=== PATIENT | female | born 1975 | race American Indian/Alaskan Native ===

== ENCOUNTER 2017-10-28 22:45 | Emergency (ER) | payer MEDICAID ==
[2017-10-28 23:16] VITALS: BP 103/68
--- NOTE | 2017-10-29 01:13 | Emergency Department Report ---
ED General Adult HPI - General Chief complaint: Headache Stated complaint: HEADACHE Time Seen by Provider: 10/29/17 00:37 Source: patient Mode of arrival: Ambulatory Limitations: No Limitations - History of Present Illness Initial comments: For the past 2 weeks, patient has been having intermittent frontal headaches. This is accompanied with sinus congestion and ear pressure. Patient has history of recurrent sinus issues. Remote history of sinus surgery. She saw a physician 2 weeks ago and was given Augmentin and loratadine. This has not helped her symptoms. So, she came to the ER for evaluation. No pain with eating. Afebrile. - Related Data Allergies Allergy/AdvReac Type Severity Reaction Status Date / Time acetaminophen Allergy Hives Verified 10/28/17 23:07 [From Excedrin PM] diphenhydramine Allergy Hives Verified 10/28/17 23:07 [From Excedrin PM] fluconazole [From Diflucan] Allergy Unknown Verified 10/28/17 23:07 metronidazole [From Flagyl] Allergy Nausea Verified 10/28/17 23:07 promethazine [From Phenergan] Allergy Unknown Verified 10/28/17 23:07 red dye Allergy Nausea Verified 10/28/17 23:07 ED Review of Systems ROS: Stated complaint: HEADACHE Other details as noted in HPI Comment: All other systems reviewed and negative ENT: ear pain, congestion Neurological: headache ED Past Medical Hx - Past Medical History Hx Diabetes: Yes (borderline) Additional medical history: hypothyrodism - Surgical History Past Surgical History?: Yes Hx Cholecystectomy: Yes Additional Surgical History: x2, sinus sx - Social History Smoking Status: Never Smoker Substance Use Type: None ED Physical Exam - General Limitations: No Limitations General appearance: alert, in no apparent distress - Head Head exam: Present: atraumatic, normocephalic - Eye Eye exam: Present: normal appearance - ENT ENT exam: Present: mucous membranes moist, TM's normal bilaterally, other (mild left frontal/maxillary sinus tenderness) - Neck Neck exam: Present: normal inspection - Respiratory Respiratory exam: Present: normal lung sounds bilaterally. Absent: respiratory distress - Cardiovascular Cardiovascular Exam: Present: regular rate, normal rhythm. Absent: systolic murmur, diastolic murmur, rubs, gallop - GI/Abdominal GI/Abdominal exam: Present: soft, normal bowel sounds. Absent: tenderness - Extremities Exam Extremities exam: Present: normal inspection - Back Exam Back exam: Present: normal inspection - Neurological Exam Neurological exam: Present: alert, oriented X3 - Psychiatric Psychiatric exam: Present: normal affect, normal mood - Skin Skin exam: Present: warm, dry, intact, normal color. Absent: rash ED Course Vital Signs 10/28/17 23:07 Temperature 98.5 F Pulse Rate 95 H Respiratory 18 Rate Blood Pressure 103/68 O2 Sat by Pulse 99 Oximetry ED Medical Decision Making - Medical Decision Making 42-year-old female with past medical history sinus congestion presents with a sinus headache. Vital signs are stable. Patient is well-appearing. Afebrile. Likely patient is suffering from sinus congestion. I will start the patient on Flonase/Claritin-D/neti-pot. Patient will follow up with her ENT physician for further management of this issue. Clear for discharge. - Differential Diagnosis sinus congestion, sinusitis, tension headache, periapical abscess Critical care attestation.: If time is entered above; I have spent that time in minutes in the direct care of this critically ill patient, excluding procedure time. ED Disposition Clinical Impression: Sinus headache Disposition: DC-01 TO HOME OR SELFCARE Is pt being admited?: No Does the pt Need Aspirin: No Condition: Stable Additional Instructions: Please start using Flonase, Claritin-D, and a neti-pot. Use these medications daily to clear up your sinuses. They can be purchased [id number]. He can take 800 mg Motrin and/or 975 mg Tylenol every 6 hours as needed for pain relief. Follow Up with her ENT physician for further management of your sinus issues.
== END 2017-10-29 01:31 | disposition home or self-care (01) ==
LOC: ED 22:45
DX: R51 Headache (principal); E03.9 Hypothyroidism, unspecified
CPT/HCPCS: 99282

== ENCOUNTER 2019-08-10 20:45 | Observation (INO) | payer MEDICAID, OTHER ==
[2019-08-10 21:31] LABS: Basophils % (Auto) 0.4 % (0.0-1.8); Eosinophils % (Auto) 0.2 % (0.0-4.3); Hematocrit 41.2 % (30.3-42.9); Hemoglobin 13.8 gm/dl (10.1-14.3); Lymphocytes # (Auto) 1.6 K/mm3 (1.2-5.4); Mean Corpuscular HGB Conc 34 % (30-34); Mean Corpuscular Volume 87 fl (79-97); Monocytes # (Auto) 0.6 K/mm3 (0.0-0.8); Monocytes % (Auto) 5.8 % (0.0-7.3); Platelet Count 269 K/mm3 (140-440); Red Blood Count 4.73 M/mm3 (3.65-5.03); Red Cell Distribution Width 14.5 % (13.2-15.2)
[2019-08-10 22:00] LABS: Alanine Aminotransferase 82 units/L (7-56); Albumin 4.3 g/dL (3.9-5); BUN/Creatinine Ratio 10; Blood Urea Nitrogen 7 mg/dL (7-17); Hemolysis Index 2
[2019-08-10 23:18] LABS: Bilirubin,Urine NEG (Negative); Blood,Urine NEG (Negative); Color,Urine Yellow (Yellow); Mucus,Urine 2+ /HPF
[2019-08-11] MEDS ORDERED: HYOSCYAMINE SUBL 0.125 MG TAB SL ONE (00:01)
[2019-08-11] MEDS ORDERED: SODIUM CHLORIDE 0.9% 1000 ML 1,000 ML IV ONE (00:01)
[2019-08-11] MEDS ORDERED: ONDANSETRON 4 MG/2 ML INJ IV ONE ×2 (00:01→04:48)
--- NOTE | 2019-08-11 00:43 | Emergency Department Report ---
ED General Adult HPI - General Chief complaint: Abdominal Pain Stated complaint: ABD PAIN Time Seen by Provider: 08/10/19 23:29 Source: patient Mode of arrival: Ambulatory Limitations: No Limitations - History of Present Illness Initial comments: Patient is a 44-year-old female presents emergency room with complaints of epigastric abdominal pain that began yesterday. She states that yesterday she ate Cheema[employer] and began to feel the pain a couple of hours later. She states that she has associated nausea and had 2 episodes of vomiting. She states that the pain radiates to her back. she states that she feels like she needs to have a BM but did not. She denies any diarrhea, fever, urinary symptoms, hematochezia, hematemesis, melena. She denies having this in the past. She has a past medical history of hypothyroidism and cholecystectomy and hysterectomy. - Related Data Allergies Allergy/AdvReac Type Severity Reaction Status Date / Time acetaminophen Allergy Hives Verified 10/28/17 23:07 [From Excedrin PM] diphenhydramine Allergy Hives Verified 10/28/17 23:07 [From Excedrin PM] fluconazole [From Diflucan] Allergy Unknown Verified 10/28/17 23:07 metronidazole [From Flagyl] Allergy Nausea Verified 10/28/17 23:07 promethazine [From Phenergan] Allergy Unknown Verified 10/28/17 23:07 red dye Allergy Nausea Verified 10/28/17 23:07 ED Review of Systems ROS: Stated complaint: ABD PAIN Other details as noted in HPI Comment: All other systems reviewed and negative ED Past Medical Hx - Past Medical History Hx Diabetes: Yes (borderline) Additional medical history: hypothyrodism - Surgical History Hx Cholecystectomy: Yes Additional Surgical History: x2, sinus sx. Partial Hyst - Social History Smoking Status: Never Smoker Substance Use Type: None ED Physical Exam - General Limitations: No Limitations General appearance: alert, in no apparent distress - Head Head exam: Present: atraumatic, normocephalic - Eye Eye exam: Present: normal appearance - ENT ENT exam: Present: mucous membranes moist - Respiratory Respiratory exam: Present: normal lung sounds bilaterally. Absent: respiratory distress, wheezes, rales, rhonchi, stridor, chest wall tenderness, accessory muscle use, decreased breath sounds, prolonged expiratory - Cardiovascular Cardiovascular Exam: Present: regular rate, normal rhythm, normal heart sounds. Absent: systolic murmur, diastolic murmur, rubs, gallop - GI/Abdominal GI/Abdominal exam: Present: soft, tenderness (epigastric), normal bowel sounds. Absent: distended, guarding, rebound, rigid - Neurological Exam Neurological exam: Present: alert, oriented X3 - Psychiatric Psychiatric exam: Present: normal affect, normal mood - Skin Skin exam: Present: warm, dry, intact ED Course Vital Signs 08/10/19 08/11/19 20:51 05:35 Temperature 98.1 F 98.6 F Pulse Rate 90 101 H Respiratory 18 18 Rate Blood Pressure 122/72 Blood Pressure 115/75 [Right] O2 Sat by Pulse 100 97 Oximetry - Consultations Consultation #1: 08/11/19 04:[address] Ruelas, GI regarding pt and results, recommended ordering MRCP admit to hospitalist and will see patient in the AM 08/11/19 04:[address] Harry, hospitalist will accept and resume care of patient will admit to hospital ED Medical Decision Making - Lab Data Result diagrams: 08/10/19 21:14 08/10/19 21:14 Lab Results 08/10/19 08/10/19 08/10/19 Range/Units 21:14 21:14 22:51 WBC 10.1 (4.5-11.0) K/mm3 RBC 4.73 (3.65-5.03) M/mm3 Hgb 13.8 (10.1-14.3) gm/dl Hct 41.2 (30.3-42.9) % MCV 87 (79-97) fl MCH 29 (28-32) pg MCHC 34 (30-34) % RDW 14.5 (13.2-15.2) % Plt Count 269 (140-440) K/mm3 Lymph % (Auto) 16.0 (13.4-35.0) % [place]cl[place] % (Auto) 5.8 (0.0-7.3) % Eos % (Auto) 0.2 (0.0-4.3) % Baso % (Auto) 0.4 (0.0-1.8) % Lymph # 1.6 (1.2-5.4) K/mm3 Mcclain # 0.6 (0.0-0.8) K/mm3 Eos # 0.0 (0.0-0.4) K/mm3 Baso # 0.0 (0.0-0.1) K/mm3 Seg Neutrophils % 77.6 H (40.0-70.0) % Seg Neutrophils # 7.9 H (1.8-7.7) K/mm3 Sodium 139 (137-145) mmol/L Potassium 3.9 (3.6-5.0) mmol/L Chloride 99.8 (98-107) mmol/L Carbon Dioxide 22 (22-30) mmol/L Anion Gap 21 mmol/L BUN 7 (7-17) mg/dL Creatinine 0.7 (0.7-1.2) mg/dL Estimated GFR > 60 ml/min BUN/Creatinine Ratio 10 % Glucose 153 H (65-100) mg/dL Calcium 10.0 (8.4-10.2) mg/dL Total Bilirubin 0.50 (0.1-1.2) mg/dL AST 85 H (5-40) units/L ALT 82 H (7-56) units/L Alkaline Phosphatase 107 (35-129) units/L Total Protein 8.4 H (6.3-8.2) g/dL Albumin 4.3 (3.9-5) g/dL Albumin/Globulin Ratio 1.0 % Urine Color Yellow (Yellow) Urine Turbidity Clear (Clear) Urine pH 6.0 (5.0-7.0) Ur Specific [place] 1.021 (1.003-1.030) Urine Protein 30 mg/dl (Negative) mg/dL Urine Glucose (UA) 50 (Negative) mg/dL Urine Ketones Neg (Negative) mg/dL Urine Blood Neg (Negative) Urine Nitrite Neg (Negative) Urine Bilirubin Neg (Negative) Urine Urobilinogen 4.0 (<2.0) mg/dL Ur Leukocyte Esterase Neg (Negative) Urine WBC (Auto) 1.0 (0.0-6.0) /HPF Urine RBC (Auto) 2.0 (0.0-6.0) /HPF U Epithel Cells (Auto) 7.0 (0-13.0) /HPF Urine Mucus 2+ /HPF - Radiology Data Radiology results: report reviewed CT abdomen pelvis w con INDICATION / CLINICAL INFORMATION: Pt complains of epigastric pain with N/V, elevated LFT's. TECHNIQUE: Axial CT imaging of abdomen and pelvis was obtained with IV contrast. Coronal and sagittal reformatted imaging obtained and reviewed. All CT scans at this location are performed using CT dose reduction for ALARA by means of automated exposure control. COMPARISON: None available. FINDINGS: CT abdomen with contrast demonstrates prominent intrahepatic biliary dilatation. Patient has had prior cholecystectomy. The degree of intrahepatic biliary dilatation is in excess of what would normally be expected in a postcholecystectomy patient. Common bile duct is also dilated, measuring approximately 8 mm in diameter. Within the pancreatic head, there is a 13 mm hypodense masslike area which may be causing the obstruction. There is mild pancreatic duct dilatation as well. Spleen, kidneys, and adrenal glands are all grossly unremarkable. There is small epigastric midline abdominal wall hernia containing only fat. CT pelvis with contrast does not demonstrate any focal inflammatory change. There is trace amount of free fluid in the posterior cul-de-sac. Small cyst is present in the left ovary, most likely postovulatory in etiology. Additionally, there is a round hyperdense mass in the right lower quadrant, measuring 3.0 cm. It is abutting the right ovary cecal tip but is unclear if it is ovarian in etiology. A normal appendix is seen separate from this mass. The remainder of the GI tract is unremarkable. Visualized lung bases are clear. No significant osseous abnormality. IMPRESSION: 1. Biliary dilatation including intrahepatic and extrahepatic. Although biliary dilatation can be seen in postcholecystectomy patients, the amount of dilatation appears excessive. Additionally there is suggestion of a 13 mm possible mass in the pancreatic head which could account for the abnormal biliary dilatation. Further evaluation with ERCP or MRCP is suggested for further evaluation. 2. 3 cm hyperdense mass in the right lower quadrant, adjacent to the right ovary and cecum. This may be ovarian in etiology but is abnormal and needs further evaluation with pelvic ultrasound in the very near future. 3. Small epigastric midline abdominal wall hernia containing only fat. Signer Name: Cherelle Michelle MD Signed: 08/11/2019 4:04 AM Workstation Name: [id number] Transcribed By: Dictated By: Cherelle Michelle MD Electronically Authenticated By: Cherelle Michelle MD Signed Date/Time: 08/11/19 0404 DD/ 0355 TD/TT: - Medical Decision Making Patient is a 44-year-old female presents emergency room with complaints of epigastric abdominal pain that began yesterday. She states that yesterday she ate [employer] and began to feel the pain a couple of hours later. She states that she has associated nausea and had 2 episodes of vomiting. She states that the pain radiates to her back. she states that she feels like she needs to have a BM but did not. She denies any diarrhea, fever, urinary symptoms, hematochezia, hematemesis, melena. She denies having this in the past. She has a past medical history of hypothyroidism and cholecystectomy and hysterectomy. Vitals are normal. On exam epigastric abdominal tenderness to palpation. Labs with elevated glucose at 153, mild elevation in ALT and AST. UA without evidence of UTI. CT abd pelvis: 1. Biliary dilatation including intrahepatic and extrahepatic. Although biliary dilatation can be seen in postcholecystectomy patients, the amount of dilatation appears excessive. Additionally there is suggestion of a 13 mm possible mass in the pancreatic head which could account for the abnormal biliary dilatation. Further evaluation with ERCP or MRCP is suggested for further evaluation. 2. 3 cm hyperdense mass in the right lower quadrant, adjacent to the right ovary and cecum. This may be ovarian in etiology but is abnormal and needs further evaluation with pelvic ultrasound in the very near future. 3. Small epigastric midline abdominal wall hernia containing only fat. spoke to Dr. Ruelas, GI regarding pt and results, recommended ordering MRCP admit to hospitalist and will see patient in the AM. spoke with Dr. Harry, hospitalist will accept and resume care of patient will admit to hospital. ordered MRCP and pelvic US, pt admitted to the hospital. - Differential Diagnosis PUD, GERD, pancreatitis, choledocholithiasis, bowel obstruction Critical care attestation.: If time is entered above; I have spent that time in minutes in the direct care of this critically ill patient, excluding procedure time. ED Disposition Clinical Impression: Epigastric abdominal pain, Dilation of biliary tract, Pancreatic mass, Ovarian mass, right Nausea and vomiting Qualifiers: Vomiting type: unspecified Vomiting Intractability: non-intractable Qualified Code(s): R11.2 - Nausea with vomiting, unspecified Disposition: OP ADMIT IP TO THIS HOSP Is pt being admited?: Yes Does the pt Need Aspirin: No Condition: Fair Time of Disposition: 04:43
--- NOTE | 2019-08-11 04:08 | Cat Scan Report ---
CT abdomen pelvis w con INDICATION / CLINICAL INFORMATION: Pt complains of epigastric pain with N/V, elevated LFT's. TECHNIQUE: Axial CT imaging of abdomen and pelvis was obtained with IV contrast. Coronal and sagittal reformatte d imaging obtained and reviewed. All CT scans at this location are performed using CT dose reduction for ALARA by means of automated exposure control. COMPARISON: None available. FINDINGS: CT abdomen with contrast demonstrates prominent intrahepatic biliary dilatation. Patient has had prio r cholecystectomy. The degree of intrahepatic biliary dilatation is in excess of what would normally be expected in a postcholecystectomy patient. Common bile duct is also dilated, measuring approximate ly 8 mm in diameter. Within the pancreatic head, there is a 13 mm hypodense masslike area which may b e causing the obstruction. There is mild pancreatic duct dilatation as well. Spleen, kidneys, and adrenal glands are all grossly unremarkable. There is small epigastric midline a bdominal wall hernia containing only fat. CT pelvis with contrast does not demonstrate any focal inflammatory change. There is trace amount of free fluid in the posterior cul-de-sac. Small cyst is present in the left ovary, most likely postovul atory in etiology. Additionally, there is a round hyperdense mass in the right lower quadrant, measur ing 3.0 cm. It is abutting the right ovary cecal tip but is unclear if it is ovarian in etiology. A n ormal appendix is seen separate from this mass. The remainder of the GI tract is unremarkable. Visualized lung bases are clear. No significant osseous abnormality. IMPRESSION: 1. Biliary dilatation including intrahepatic and extrahepatic. Although biliary dilatation can be see n in postcholecystectomy patients, the amount of dilatation appears excessive. Additionally there is suggestion of a 13 mm possible mass in the pancreatic head which could account for the abnormal bilia ry dilatation. Further evaluation with ERCP or MRCP is suggested for further evaluation. 2. 3 cm hyperdense mass in the right lower quadrant, adjacent to the right ovary and cecum. This may be ovarian in etiology but is abnormal and needs further evaluation with pelvic ultrasound in the ce y near future. 3. Small epigastric midline abdominal wall hernia containing only fat. Signer Name: Cherelle Michelle MD Signed: 08/11/2019 4:04 AM Workstation Name: [id number]
--- NOTE | 2019-08-11 07:42 | Ultrasound Report ---
ULTRASOUND PELVIS INDICATION / CLINICAL INFORMATION: possible right ovarian mass on CT. TECHNIQUE: Transabdominal. Transvaginal Duplex Color Doppler used: Yes. COMPARISON: CT scan 08/11/2019. FINDINGS: marketing technologist indicates the patient stated she had a hysterectomy in [address]. [address] sc an, there is a 7 cm oval mass in the expected location of the uterus. marketing technologist does no t image a uterus but probably was under the impression that it was absent. RIGHT ADNEXA: There is a tubular structure in the right adnexa consistent with small hydrosalpinx. A normal appearing right ovary is present measuring 2.3 x 1.1 cm. The 3 cm round solid hyperdense mass on CT scan adjacent to the right ovary is not identified sonographically. LEFT ADNEXA: Left ovary is well-visualized. There is a 1 cm complicated cyst in the left ovary consis tent with CT findings of a postovulatory appearing cyst. Normal color Doppler blood flow. FREE FLUID: Trace free fluid is present in the cul-de-sac. ADDITIONAL FINDINGS: None. IMPRESSION: 1. The 3 cm solid hyperdense mass adjacent to the right ovary on CT scan is not identified sonographi shavon. Nonemergent CLIMATOLOGY TEACHER consultation is recommended for further evaluation. 2. Patient states hysterectomy was performed in 2004. However, what appears to be a normal sized uter us is present on CT scan. CLIMATOLOGY TEACHER consultation can further evaluate this discrepancy as well. Signer Name: Cherelle Michelle MD Signed: 08/11/2019 7:38 AM Workstation Name: [id number]
--- NOTE | 2019-08-11 07:42 | Ultrasound Report ---
ULTRASOUND PELVIS INDICATION / CLINICAL INFORMATION: possible right ovarian mass on CT. TECHNIQUE: Transabdominal. Transvaginal Duplex Color Doppler used: Yes. COMPARISON: CT scan 08/11/2019. FINDINGS: arrt technologist indicates the patient stated she had a hysterectomy in [address] sc an, there is a 7 cm oval mass in the expected location of the uterus. arrt technologist does no t image a uterus but probably was under the impression that it was absent. RIGHT ADNEXA: There is a tubular structure in the right adnexa consistent with small hydrosalpinx. A normal appearing right ovary is present measuring 2.3 x 1.1 cm. The 3 cm round solid hyperdense mass on CT scan adjacent to the right ovary is not identified sonographically. LEFT ADNEXA: Left ovary is well-visualized. There is a 1 cm complicated cyst in the left ovary consis tent with CT findings of a postovulatory appearing cyst. Normal color Doppler blood flow. FREE FLUID: Trace free fluid is present in the cul-de-sac. ADDITIONAL FINDINGS: None. IMPRESSION: 1. The 3 cm solid hyperdense mass adjacent to the right ovary on CT scan is not identified sonographi shavon. Nonemergent DRY CLEANING CHECKER consultation is recommended for further evaluation. 2. Patient states hysterectomy was performed in 2004. However, what appears to be a normal sized uter us is present on CT scan. DRY CLEANING CHECKER consultation can further evaluate this discrepancy as well. Signer Name: Cherelle Michelle MD Signed: 08/11/2019 7:38 AM Workstation Name: [id number]
--- NOTE | 2019-08-11 08:08 | History and Physical Report ---
History of Present Illness Date of examination: 08/11/19 Date of admission: 08/11/19 06:15 History of present illness: Patient is a 44-year-old female presents emergency room with complaints of epigastric abdominal pain that began yesterday. She states that yesterday she ate [employer] and began to feel the pain a couple of hours later. She states that she has associated nausea and had 2 episodes of vomiting. She states that the pain radiates to her back. she states that she feels like she needs to have a BM but did not. She denies any diarrhea, fever, urinary symptoms, hematochezia, hematemesis, melena. She denies having this in the past. She has a past medical history of hypothyroidism and cholecystectomy and hysterectomy. Vitals are normal. On exam epigastric abdominal tenderness to palpation. Labs with elevated glucose at 153, mild elevation in ALT and AST. UA without evidence of UTI. CT abd pelvis: 1. Biliary dilatation including intrahepatic and extrahepatic. Although biliary dilatation can be seen in postcholecystectomy patients, the amount of dilatation appears excessive. Additionally there is suggestion of a 13 mm possible mass in the pancreatic head which could account for the abnormal biliary dilatation. Further evaluation with ERCP or MRCP is suggested for further evaluation. 2. 3 cm hyperdense mass in the right lower quadrant, adjacent to the right ovary and cecum. This may be ovarian in etiology but is abnormal and needs further evaluation with pelvic ultrasound in the very near future. 3. Small epigastric midline abdominal wall hernia containing only fat. consultrd Dr. Ruelas, GI regarding pt and results, recommended ordering MRCP admit to for further Mx. Medications and Allergies Allergies Allergy/AdvReac Type Severity Reaction Status Date / Time acetaminophen Allergy Hives Verified 10/28/17 23:07 [From Excedrin PM] diphenhydramine Allergy Hives Verified 10/28/17 23:07 [From Excedrin PM] fluconazole [From Diflucan] Allergy Unknown Verified 10/28/17 23:07 metronidazole [From Flagyl] Allergy Nausea Verified 10/28/17 23:07 promethazine [From Phenergan] Allergy Unknown Verified 10/28/17 23:07 red dye Allergy Nausea Verified 10/28/17 23:07 Exam - Constitutional Vitals: Temp Pulse Resp BP Pulse Ox 98.6 F 101 H 18 115/75 97 08/11/19 05:35 08/11/19 05:35 08/11/19 05:35 08/11/19 05:35 08/11/19 05:35 Results - Labs CBC & Chem 7: 08/10/19 21:14 08/10/19 21:14 Labs: Abnormal lab results 08/10/19 08/10/19 Range/Units 21:14 21:14 Seg Neutrophils % 77.6 H (40.0-70.0) % Seg Neutrophils # 7.9 H (1.8-7.7) K/mm3 Glucose 153 H (65-100) mg/dL AST 85 H (5-40) units/L ALT 82 H (7-56) units/L Total Protein 8.4 H (6.3-8.2) g/dL
[2019-08-11] MEDS ORDERED: MORPHINE 2 MG/1 ML INJ IV PRN (08:30)
[2019-08-11] MEDS ORDERED: hydrALAZINE 20 MG/1 ML INJ IV PRN (08:30)
[2019-08-11] MEDS ORDERED: D5W/0.9% NACL 1,000 ML IV SCH (09:00)
[2019-08-11] MEDS ORDERED: METOCLOPRAMIDE 10 MG TAB PO PRN (09:00)
[2019-08-11] MEDS ORDERED: ONDANSETRON 4 MG/2 ML INJ IV PRN (09:00)
--- NOTE | 2019-08-11 09:11 | Magnetic Resonance Report ---
MRI abdomen without contrast--MRCP INDICATION: MAIN: biliary dilatation and pancreatic head mass on CT, abd pain, cholecystectomy. COMPARISON: CT abdomen/pelvis from today FINDINGS: Lung bases are clear. There is no acute osseous abnormality. ABDOMEN: On the comparison CT exam, there is a well-defined hypodense rounded area in the pancreatic head region at the level of the ampulla. There is also mild biliary ductal dilatation. This suspected ampullary mass is much less conspicuous on this exam and frankly poorly seen. In addition, the degre e of intrahepatic and extrahepatic biliary ductal dilatation is less within the CT exam performed lisette roximately 5 hours earlier. The liver is slightly enlarged but no focal mass is identified. The gallbladder is surgically absent. The spleen, pancreas, adrenals, kidneys, and visualized GI tract appear unremarkable. IMPRESSION: 1. No obvious mass or choledocholithiasis on this exam. In addition the degree of biliary ductal dila tation is less on the current exam than the comparison CT exam. On the comparison CT, the possible ma ss in question was seen in the region of the ampulla of Vater. Recommend follow-up ERCP for further e valuation. 2. The exam is otherwise unremarkable. Signer Name: Jason Lowery MD Signed: 08/11/2019 9:06 AM Workstation Name: [id number]
[2019-08-11] MEDS ORDERED: FAMOTIDINE 10 MG TAB PO SCH (10:00)
[2019-08-11 10:10] VITALS: BP 100/51
--- NOTE | 2019-08-11 11:20 | Gastroenterology Consultation ---
History of Present Illness - Reason for Consult Consult date: 08/11/19 Abnormal Imaging Requesting physician: ALXEX LOPES - History of Present Illness The patient is a 44 yo female with IBS-C who has followed with GI in [facility]. She has not seen them in a few years, and is on no chronic IBS medications. She came to the ER after acute epigastric pain after eating a large meal. She was noted to have mildly elevated LFTs, and a CT (then MRI) were done for dilated ducts and ?mass in the ampulla. The MRI/MRCP was much less concerning than the CT scan, and the alk phos and bili were normal (only mild transaminitis). She says the pain faded away completely within 6 hours of receiving IV pepcid, and she does admit to PRN antiacid use at home. She has had no emesis, abnormal weight loss, blood in her stools, CP or SOB. She has had an EGD and barium en andrés in [place] (years ago) that were normal. Past History Past Medical History: hypothyroidism, other (IBS-C) Past Surgical History: cholecystectomy, hysterectomy (Partial (endometriosis); ovarian cysts) Social history: denies: smoking, alcohol abuse Family history: no significant family history Medications and Allergies Allergies Allergy/AdvReac Type Severity Reaction Status Date / Time acetaminophen Allergy Hives Verified 10/28/17 23:07 [From Excedrin PM] diphenhydramine Allergy Hives Verified 10/28/17 23:07 [From Excedrin PM] fluconazole [From Diflucan] Allergy Unknown Verified 10/28/17 23:07 metronidazole [From Flagyl] Allergy Nausea Verified 10/28/17 23:07 promethazine [From Phenergan] Allergy Unknown Verified 10/28/17 23:07 red dye Allergy Nausea Verified 10/28/17 23:07 Active Meds: Active Medications Hydralazine HCl (Apresoline) 5 mg IV Q30MIN PRN PRN Reason: Hypertension Dextrose/Sodium Chloride (D5ns) 1,000 mls @ 100 mls/hr IV DIRECT PEPE Metoclopramide HCl (Reglan) 10 mg PO Q6H PRN PRN Reason: Nausea And Vomiting Morphine Sulfate (Morphine) 2 mg IV Q4H PRN PRN Reason: Pain, Moderate (4-6) Ondansetron HCl (Zofran) 4 mg IV Q8H PRN PRN Reason: N/V unrelieved by Aury I HAVE REVIEWED AND RECONCILED MEDICATIONS Review of Systems - Review of Systems All systems: negative (as noted in the HPI) Exam - Constitutional Vital Signs: Temp Pulse Resp BP Pulse Ox 98.6 F 74 19 100/51 98 08/11/19 09:00 08/11/19 10:00 08/11/19 10:00 08/11/19 10:00 08/11/19 10:00 General appearance: no acute distress - EENT Eyes: PERRL, EOM intact ENT: hearing intact, clear oral mucosa, no thrush - Neck Neck: supple, normal ROM - Respiratory Respiratory effort: normal Respiratory: bilateral: CTA - Cardiovascular Rhythm: regular Heart Sounds: Present: S1 & S2 Extremities: no ischemia, No edema - Gastrointestinal General gastrointestinal: Present: soft, non-tender, non-distended - Integumentary Integumentary: Present: clear, warm, dry - Neurologic Neurological: alert and oriented x3 - Psychiatric Psychiatric: appropriate mood/affect - Labs CBC & Chem 7: 08/10/19 21:14 08/10/19 21:14 Lab Results: Laboratory Results - last 24 hr 08/10/19 08/10/19 08/10/19 21:14 21:14 22:51 WBC 10.1 RBC 4.73 Hgb 13.8 Hct 41.2 MCV 87 MCH 29 MCHC 34 RDW 14.5 Plt Count 269 Lymph % (Auto) 16.0 [place] % (Auto) 5.8 Eos % (Auto) 0.2 Baso % (Auto) 0.4 Lymph # 1.6 [place] # 0.6 Eos # 0.0 Baso # 0.0 Seg Neutrophils % 77.6 H Seg Neutrophils # 7.9 H Sodium 139 Potassium 3.9 Chloride 99.8 Carbon Dioxide 22 Anion Gap 21 BUN 7 Creatinine 0.7 Estimated GFR > 60 BUN/Creatinine Ratio 10 Glucose 153 H Calcium 10.0 Total Bilirubin 0.50 AST 85 H ALT 82 H Alkaline Phosphatase 107 Total Protein 8.4 H Albumin 4.3 Albumin/Globulin Ratio 1.0 Urine Color Yellow Urine Turbidity Clear Urine pH 6.0 Ur Specific [place] 1.021 Urine Protein 30 mg/dl Urine Glucose (UA) 50 Urine Ketones Neg Urine Blood Neg Urine Nitrite Neg Urine Bilirubin Neg Urine Urobilinogen 4.0 Ur Leukocyte Esterase Neg Urine WBC (Auto) 1.0 Urine RBC (Auto) 2.0 U Epithel Cells (Auto) 7.0 Urine Mucus 2+ Assessment and Plan - Patient Problems (1) Abnormal CT of liver Current Visit: Yes Status: Acute Plan to address problem: - DDx includes normal post-CCY state, passed gallstones, ampullary stenosis, mass lesion. - Given normal AP and Bili, much less concerned about mass lesion, and patient is now asymptomatic. - Would give PO challenge, and PO protonix; if tolerates, OK to d/c home. - We can arrange further investigation in the outpatient clinic. (2) Transaminitis Current Visit: Yes Status: Acute
[2019-08-11] MEDS ORDERED: D5W/0.2% NACL 1,000 ML IV ONE (11:25)
[2019-08-11] MEDS ORDERED: D5W/0.9% NACL 1,000 ML IV ONE (11:26)
[2019-08-11] MEDS ORDERED: PANTOPRAZOLE 40 MG TAB PO SCH (12:00)
[2019-08-11] MEDS ORDERED: PANTOPRAZOLE 40 MG INJ IV ONE (13:34)
[2019-08-11] MEDS ORDERED: PANTOPRAZOLE 40 MG TAB PO ONE (13:40)
--- NOTE | 2019-08-11 15:20 | Discharge Summary ---
Providers - Providers Date of Admission: 08/11/19 06:15 Date of discharge: 08/11/19 Attending physician: ALEXX LOPES 08/11/19 04:40 Consult to Physician [CONS] Stat Comment: RUTH Slater spoke with Dr. Boone @ [id number] Consulting Provider: TEODORO BOONE Physician Instructions: Reason For Exam: biliary dilatation and pancreatic head mass Primary care physician: LINING FELLER BLINDSTITCH Hospitalization Condition: Fair Disposition: DC-01 TO HOME OR SELFCARE Time spent for discharge: 34 minutes Core Measure Documentation - Palliative Care Palliative Care/ Comfort Measures: Not Applicable - Core Measures Any of the following diagnoses?: none Exam - Constitutional Vitals: Temp Pulse Resp BP Pulse Ox 98.6 F 74 19 100/51 98 08/11/19 09:00 08/11/19 10:00 08/11/19 10:00 08/11/19 10:00 08/11/19 10:00 Plan Activity: advance as tolerated Weight Bearing Status: Weight Bear as Tolerated Diet: low fat Follow up with: PRIMARY CARE, [Primary Care Provider] - 3-5 Days Prescriptions: Pantoprazole [Protonix TAB] 40 mg PO QDAY #30 tablet Metoclopramide [Reglan TAB] 10 mg PO Q6H PRN #30 tablet PRN Reason: Nausea And Vomiting
== END 2019-08-11 16:05 | disposition home or self-care (01) ==
LOC: ED 20:45 → 4A 08-11 06:15 → INTOOBSV 08-11 06:15 → 4A 08-11 08:44
PROVIDERS: ADMIT Internal Medicine; ATTEND Internal Medicine
DX: R10.13 Epigastric pain (principal); R11.2 Nausea with vomiting, unspecified; K83.8 Other specified diseases of biliary tract; K86.89 Other specified diseases of pancreas; N83.201 Unspecified ovarian cyst, right side; E11.9 Type 2 diabetes mellitus without complications; E03.9 Hypothyroidism, unspecified; Z90.49 Acquired absence of other specified parts of digestive tract; Z90.711 Acquired absence of uterus with remaining cervical stump; Z79.899 Other long term (current) drug therapy; Z88.1 Allergy status to other antibiotic agents; Z91.041 Radiographic dye allergy status; Z88.8 Allergy status to other drugs, medicaments and biological substances
CPT/HCPCS: 36415; 74177; 74181; 76830; 76856; 80053; 81001; 85025; 96361; 96374; 96376; 99285; G0378; J2405; J7030; J7042; Q9967; C9113